=== PATIENT | male | born 1950 | race Asian ===

== ENCOUNTER 2023-10-21 06:42 | Day surgery (SDC) | payer OTHER ==
[~2023-10-21] VITALS: Ht 170.2 cm; Wt 90.9 kg
[2023-10-21] MEDS ORDERED: LIDOCAINE 4% 50 ML SOLUTION TP ONE (06:43)
[2023-10-21] MEDS ORDERED: BENZOCAINE 20% 50 MCG/SPRAY 57 GM TP ONE (06:43)
[2023-10-21] MEDS ORDERED: LIDOCAINE 2% 11 ML JELLY TP ONE (06:43)
[2023-10-21] MEDS ORDERED: SODIUM CHLORIDE 0.9% 1,000 ML ONE (07:38)
[2023-10-21] MEDS ORDERED: MIDAZOLAM HCL 2 MG/2 ML VIAL ONE (07:51)
[2023-10-21] MEDS ORDERED: FentaNYL CITRATE PF 100 MCG/2 ML VIAL ONE (07:51)
[2023-10-21] MEDS: SODIUM CHLORIDE 0.9% 1,000 ML IV ONE (08:08)
[2023-10-21 08:16] LABS: GLUCOMETER DEV NAME(LOC) SDS.; GLUCOSE,POINT OF CARE 84 MG/DL (70-110)
[2023-10-21] MEDS ORDERED: LOSA-381 PO (08:32)
[2023-10-21] MEDS ORDERED: METF-1211 PO (08:32)
[2023-10-21] MEDS ORDERED: ASPI-1450 PO (08:32)
[2023-10-21] MEDS ORDERED: FENO67CA16 PO (08:32)
[2023-10-21] MEDS ORDERED: PIOG45TA4 PO (08:32)
[2023-10-21] MEDS ORDERED: DULA3PEN SQ (08:32)
[2023-10-21] MEDS ORDERED: METO50 PO (08:32)
[2023-10-21] MEDS ORDERED: METO25 PO (08:32)
[2023-10-21] MEDS ORDERED: GLIP5TAB16 PO (08:32)
[2023-10-21] MEDS ORDERED: FLUT1BLS19 IH (08:32)
[2023-10-21 09:32] VITALS: PULSE 67; RESP 16; O2SAT 96
[2023-10-21] MEDS: MethylPREDNISolone SOD SUCC 125 MG/2 ML VIAL IVP ONE (10:08)
== END 2023-10-21 11:50 | disposition home or self-care (01) ==
LOC: SURGERY 06:42 → EDSEX 09:00 → SURGERY 11:50
PROVIDERS: ATTEND Internal Medicine Critical Care Medicine
DX: B37.0 Candidal stomatitis (principal); J38.4 Edema of larynx; I10 Essential (primary) hypertension; E11.9 Type 2 diabetes mellitus without complications; Z79.899 Other long term (current) drug therapy; Z98.890 Other specified postprocedural states; E78.00 Pure hypercholesterolemia, unspecified; Z79.82 Long term (current) use of aspirin
CPT/HCPCS: 31623; 88112; 82962; 87206; 87101; 87220; 87070; 88305; 31624; 71045; 87015; J3010; J2250; J2930; Q9967; J7030; Z7610